=== PATIENT | male | born 1980 | race Caucasian/White ===

== ENCOUNTER 2019-06-20 14:05 | Emergency (ER) | payer OTHER ==
[~2019-06-20] VITALS: Ht 185.4 cm; Wt 97.5 kg
[2019-06-20] MEDS ORDERED: SERTRALINE HCL100 MG PO (14:26)
[2019-06-20] MEDS ORDERED: NAPROSYN500 MG PO (15:08)
[2019-06-20] MEDS ORDERED: ZANAFLEX4 MG PO (15:08)
[2019-06-20] MEDS ORDERED: TYLENOL WITH CO1 TA1 PO (17:29)
[2019-06-20 17:43] VITALS: BP 147/84
== END 2019-06-20 17:47 | disposition home or self-care (01) ==
LOC: M.ERS 14:05
DX: S16.1XXA Strain of muscle, fascia and tendon at neck level, initial encounter (principal); S29.012A Strain of muscle and tendon of back wall of thorax, initial encounter; S63.591A Other specified sprain of right wrist, initial encounter; S70.02XA Contusion of left hip, initial encounter; S70.01XA Contusion of right hip, initial encounter; S60.221A Contusion of right hand, initial encounter; S00.531A Contusion of lip, initial encounter; S00.83XA Contusion of other part of head, initial encounter; S50.02XA Contusion of left elbow, initial encounter; Y08.89XA Assault by other specified means, initial encounter; Y93.9 Activity, unspecified; Y92.89 Other specified places as the place of occurrence of the external cause; Y99.8 Other external cause status